=== PATIENT | female | born 1995 | race Caucasian/White ===

== ENCOUNTER 2018-01-21 02:25 | Outpatient (CLI) | payer OTHER ==
[2018-01-21 04:44] LABS: RUPTURE FETAL MEMBRANES NEGATIVE (NEGATIVE)
== END 2018-01-21 06:00 | disposition home or self-care (01) ==
LOC: OBT 02:25 → L-D 02:25 → OBT 06:00
DX: O42.913 Preterm premature rupture of membranes, unspecified as to length of time between rupture and onset of labor, third trimester (principal); Z3A.39 39 weeks gestation of pregnancy
CPT/HCPCS: 76818; 84112

== ENCOUNTER 2018-01-22 17:54 | Inpatient (IN) | payer OTHER ==
[2018-01-22] MEDS: LACTATED RINGER'S 1,000 ML IV* (19:45)
[2018-01-22] MEDS ORDERED: METHYLERGONOVINE 0.2 MG INJ IM (20:00)
[2018-01-22] MEDS ORDERED: ACETAMINOPHEN/CODEINE #3 TAB PO (20:00)
[2018-01-22] MEDS ORDERED: CARBOPROST 250 MCG INJ IM (20:00)
[2018-01-22] MEDS ORDERED: OXYTOCIN 30 UNITS/LR 500 ML IV ×2 (20:00)
[2018-01-22] MEDS ORDERED: IBUPROFEN 600 MG TAB PO (20:00)
[2018-01-22] MEDS ORDERED: LIDOCAINE 1% (MPF) 30 ML INJ INJ (20:00)
[2018-01-22] MEDS ORDERED: MISOPROSTOL 200 MCG TAB PR (20:00)
[2018-01-22 20:03] LABS: ADD MAN DIFF? NO
[2018-01-22 20:08] LABS: BASOPHILS % 0.3 % (0.0-2.0); EOSINOPHILS # 0.1 10^3/ul (0.0-0.5); EOSINOPHILS % 0.6 % (0.0-7.0); HEMOGLOBIN 12.9 g/dl (12.0-16.0); LYMPHOCYTES # 2.3 10^3/ul (0.8-2.9); MEAN CORPUSCULAR HEMOGLOBIN 29.9 pg (29.0-33.0); MEAN CORPUSCULAR HGB CONC 33.9 g/dl (32.0-37.0); MEAN PLATELET VOLUME 11.6 fl (7.4-10.4); MONOCYTE # 0.7 10^3/ul (0.3-0.9); MONOCYTES % 5.7 % (0.0-11.0); NEUTROPHILS % 74.1 % (39.0-77.0); PLATELET COUNT 255 10^3/UL (140-415); RED BLOOD COUNT 4.32 10^6/ul (4.20-5.40)
[2018-01-22 20:08] LABS: WHITE BLOOD COUNT 12.1 10^3/ul (4.8-10.8)
[2018-01-22 20:31] LABS: INR 0.87; PROTIME 11.9 Sec (11.9-14.9); PT RATIO 0.9
[2018-01-22 20:32] LABS: PARTIAL THROMBOPLASTIN TIME 28.2 Sec (25.0-35.0)
[2018-01-22] MEDS: OXYTOCIN 30 UNITS/LR 500 ML IV (21:52)
[2018-01-22 21:54] LABS: HEPATITIS B SURFACE ANTIGEN NEGATIVE (NEGATIVE)
[2018-01-23] MEDS: BUTORPHANOL 2 MG INJ IV (04:30)
[2018-01-23] MEDS: LACTATED RINGER'S 1,000 ML IV* ×3 (06:27→19:37)
[2018-01-23] MEDS ORDERED: DEXAMETHASONE 4 MG/ML 1 ML INJ (07:00)
[2018-01-23] MEDS ORDERED: FENTAnyl 2MCG/ML-ROPIV 0.2% 100 ML (08:23)
[2018-01-23] MEDS ORDERED: FENTAnyl 2MCG/ML-ROPIV 0.2% 100 ML BAG EPI (08:30)
[2018-01-23] MEDS ORDERED: NALOXONE (0.4 MG/ML) INJ IV ×2 (08:30→16:30)
[2018-01-23] MEDS ORDERED: DIPHENHYDRAMINE 50 MG INJ IV ×2 (08:30→16:30)
[2018-01-23] MEDS ORDERED: ONDANSETRON 4 MG INJ IV ×2 (08:30→16:30)
[2018-01-23] MEDS ORDERED: CLINDAMYCIN 900 MG/D5W (PMX) 50 ML IVPB (10:59)
[2018-01-23] MEDS: CLINDAMYCIN 900 MG/D5W (PMX) 50 ML IVPB ×2 (11:38→20:43)
[2018-01-23] MEDS: LACTATED RINGER'S 1,000 ML IV ×2 (14:28→22:28)
[2018-01-23] MEDS ORDERED: GENTAMICIN 80 MG/NS (PMX) 50 ML (14:37)
[2018-01-23] MEDS ORDERED: NA BICARBONATE 8.4% 50 ML SYG (15:10)
[2018-01-23] MEDS ORDERED: FENTAnyl 50 MCG/ML VIAL (15:10)
[2018-01-23] MEDS ORDERED: LIDOCAINE 1.5%/EPI MPF (SDV) 30 ML VIAL (15:10)
[2018-01-23] MEDS ORDERED: PHENYLephrine (100 MCG/ML) 5ML SYG (15:16)
[2018-01-23] MEDS: GENTAMICIN 80MG/NS (pmx) 100 ML IVPB (15:25)
[2018-01-23] MEDS ORDERED: morphine SULFATE/PF (10 MG/10 ML) INJ (15:35)
[2018-01-23 16:13] LABS: RAPID PLASMA REAGIN REACTIVE (NR)
[2018-01-23] MEDS: OXYTOCIN 30 UNITS/LR 500 ML IV ×2 (16:29→19:19)
[2018-01-23] MEDS ORDERED: HYDROmorphONE 0.5 MG/0.5 ML SYG IV ×2 (16:30)
[2018-01-23] MEDS ORDERED: MISOPROSTOL 200 MCG TAB PR (16:30)
[2018-01-23] MEDS ORDERED: OXYCODONE/ACETAMINOPHEN (5/325) TAB PO ×2 (16:30)
[2018-01-23] MEDS ORDERED: ZOLPIDEM 5 MG TAB PO (16:30)
[2018-01-23] MEDS ORDERED: OXYTOCIN 30 UNITS/LR 500 ML IV (16:30)
[2018-01-23] MEDS ORDERED: METHYLERGONOVINE 0.2 MG INJ IM (16:30)
[2018-01-23] MEDS: CLINDAMYCIN 900 MG/D5W (PMX) 50 ML IV (16:30)
[2018-01-23] MEDS ORDERED: CARBOPROST 250 MCG INJ IM (16:30)
[2018-01-23 18:16] LABS: AMPHETAMINE/METHAMPHETAMINE Negative (NEGATIVE); BARBITURATES Negative (NEGATIVE); BENZODIAZEPINES Negative (NEGATIVE); CANNABINOIDS Negative (NEGATIVE); COCAINE Negative (NEGATIVE); OPIATES Positive (NEGATIVE)
[2018-01-23] MEDS: SENNA/DOCUSATE NA (8.6MG/50MG) TAB PO (20:43)
[2018-01-24] MEDS: CLINDAMYCIN 900 MG/D5W (PMX) 50 ML IVPB ×2 (00:26→06:10)
[2018-01-24] MEDS: CLINDAMYCIN 900 MG/D5W (PMX) 50 ML IV (00:30)
[2018-01-24] MEDS: LACTATED RINGER'S 1,000 ML IV* ×2 (03:37→11:37)
[2018-01-24] MEDS: LACTATED RINGER'S 1,000 ML IV ×2 (06:55→14:28)
[2018-01-24 09:14] LABS: ADD MAN DIFF? NO
[2018-01-24 09:19] LABS: WHITE BLOOD COUNT 12.9 10^3/ul (4.8-10.8)
[2018-01-24 09:19] LABS: BASOPHILS % 0.2 % (0.0-2.0); EOSINOPHILS % 0.2 % (0.0-7.0); HEMATOCRIT 35.5 % (37.0-47.0); HEMOGLOBIN 11.7 g/dl (12.0-16.0); LYMPHOCYTES # 1.4 10^3/ul (0.8-2.9); MEAN CORPUSCULAR HEMOGLOBIN 29.6 pg (29.0-33.0); MEAN CORPUSCULAR VOLUME 89.9 fl (82.0-101.0); MEAN PLATELET VOLUME 10.7 fl (7.4-10.4); MONOCYTE # 0.9 10^3/ul (0.3-0.9); NEUTROPHIL # 10.5 10^3/ul (1.6-7.5); NEUTROPHILS % 81.1 % (39.0-77.0); PLATELET COUNT 201 10^3/UL (140-415); RED BLOOD COUNT 3.95 10^6/ul (4.20-5.40); RED CELL DISTRIBUTION WIDTH 13.9 % (11.5-14.5)
[2018-01-24] MEDS: SENNA/DOCUSATE NA (8.6MG/50MG) TAB PO ×2 (10:57→21:58)
[2018-01-24] MEDS: KETOROLAC 30 MG INJ IV (14:15)
[2018-01-24] MEDS: IBUPROFEN 600 MG TAB PO ×2 (17:33→23:50)
[2018-01-24] MEDS: LANOLIN 7 GM TUBE TOP (17:34)
[2018-01-25] MEDS: IBUPROFEN 600 MG TAB PO ×4 (06:06→23:42)
[2018-01-25] MEDS: SENNA/DOCUSATE NA (8.6MG/50MG) TAB PO ×2 (09:00→21:46)
[2018-01-25 16:27] LABS: FLUORESCENT TREPONEMAL AB NON-REACTIVE (NON-REACTIVE)
[2018-01-26] MEDS: IBUPROFEN 600 MG TAB PO (05:36)
[2018-01-26] MEDS: SENNA/DOCUSATE NA (8.6MG/50MG) TAB PO (09:00)
== END 2018-01-26 12:18 | disposition home or self-care (01) | DRG 766 ==
LOC: OBT 17:54 → L-D 17:55 → OBT 18:25 → L-D 01-23 16:15 → PP1 01-23 18:55
PROC: 10D00Z1 Extraction of Products of Conception, Low, Open Approach (ICD-10-PCS; principal; 2018-01-23 15:00)
DX: O42.02 Full-term premature rupture of membranes, onset of labor within 24 hours of rupture (principal); O76 Abnormality in fetal heart rate and rhythm complicating labor and delivery; O77.0 Labor and delivery complicated by meconium in amniotic fluid; Z3A.39 39 weeks gestation of pregnancy; Z37.0 Single live birth
CPT/HCPCS: 62319; 76815; 80307; 85025; 85610; 85730; 86592; 86850; 86900; 86901; 87285; 87340; 99464